=== PATIENT | female | born 1975 | race Two or more races ===

== ENCOUNTER 2024-01-14 13:14 | Outpatient (CLI) | payer OTHER ==
[2024-01-15] MEDS ORDERED: COZAAR25 MG PO (13:13)
[2024-01-15] MEDS ORDERED: MACRODANTIN100 M1 PO (14:32)
== END 2024-01-14 13:21 | disposition home or self-care (01) ==
LOC: MAMO-SONO 13:14
PROVIDERS: ATTEND Obstetrics & Gynecology
DX: R10.2 Pelvic and perineal pain (principal); N60.11 Diffuse cystic mastopathy of right breast; N60.12 Diffuse cystic mastopathy of left breast

== ENCOUNTER 2024-01-15 12:22 | Emergency (ER) | payer OTHER ==
[~2024-01-15] VITALS: Ht 170.2 cm; Wt 88.5 kg
[2024-01-15] MEDS ORDERED: COZAAR25 MG PO (13:13)
[2024-01-15] MEDS ORDERED: CEFTRIAXONE SODIUM 1,000 MG VIAL IM ONE (13:30)
[2024-01-15 13:31] LABS: HEMATOCRIT 41.1 % (36.0-45.00); HEMOGLOBIN 13.5 g/dL (12.0-15.00); MEAN CELL VOLUME 80.5 fL (80.00-100.00); MEAN CORPUSCULAR HEMOGLOBIN 26.5 pg (27.00-32.0); MEAN CORPUSCULAR HGB CONC 32.9 g/dl (32.0-36.0); PLATELET COUNT 289 K/uL (150-450); RED CELL DISTRIBUTION WIDTH 14.5 % (11.5-14.5)
[2024-01-15 13:52] LABS: ALBUMIN 3.5 gm/dL (3.4-5.0); BILIRUBIN TOTAL 0.41 mg/dL (0.3-1.2); CALCIUM 8.9 mg/dL (8.5-10.1); CREATININE SERUM 0.7 mg/dL (0.55-1.02); GFR 88.94; GLOBULINA 4.2 G/DL (2.4-3.5); POTASSIUM 4.05 mEq/L (3.5-5.1); TOTAL PROTEIN 7.7 gm/dL (6.4-8.2)
[2024-01-15 13:54] LABS: PH,URINE 5.5 (5.0-8.0); URINE APPEARANCE Cloudy; URINE BILIRRUBIN Small (NEGATIVE); URINE BLOOD Large; URINE COLOR Orange; URINE GLUCOSE Negative (NEGATIVE); URINE KETONE Negative (NEGATIVE); URINE LEUKOCYTE Small; URINE NITRATE Positive; URINE PROTEIN Trace (NEGATIVE)
[2024-01-15 13:58] LABS: URINE BACTERIA 6461.1 uL (0.0-1933); URINE EPITHELIAL CELLS 51.6 uL (0.0-38.8); URINE RBC 70.8 uL (0.0-20.8); URINE WBC 88.6 uL (0.0-23.2)
[2024-01-15 14:15] LABS: URINE CAST 0.14 uL (0.0-1.40)
[2024-01-15] MEDS ORDERED: MACRODANTIN100 M1 PO (14:32)
== END 2024-01-15 14:35 | disposition home or self-care (01) ==
LOC: ER 12:22
PROVIDERS: General Practice
DX: N39.0 Urinary tract infection, site not specified (principal); R30.0 Dysuria; I10 Essential (primary) hypertension; Z88.0 Allergy status to penicillin; Z88.1 Allergy status to other antibiotic agents

== ENCOUNTER → 2024-02-21 09:48 | Outpatient (CLI) | payer OTHER ==
[~2024-02-21 09:48] MED LIST: COZAAR25 MG PO; MACRODANTIN100 M1 PO
[2024-02-21 11:48] LABS: PH,URINE 6.5 (5.0-8.0); URINE APPEARANCE Clear; URINE BILIRRUBIN Negative (NEGATIVE); URINE BLOOD Small; URINE COLOR Yellow; URINE GLUCOSE Negative (NEGATIVE); URINE KETONE Negative (NEGATIVE); URINE LEUKOCYTE Negative; URINE NITRATE Negative; URINE PROTEIN Negative (NEGATIVE); URINE UROBILINOGEN 0.2 E.U./dl
[2024-02-21 11:49] LABS: URINE BACTERIA 512.8 uL (0.0-1933); URINE EPITHELIAL CELLS 13.9 uL (0.0-38.8); URINE RBC 23.2 uL (0.0-20.8); URINE WBC 6.7 uL (0.0-23.2)
[2024-02-21 12:06] LABS: URINE CAST 0.14 uL (0.0-1.40)
[2024-02-21 12:11] LABS: HEMATOCRIT 40.4 % (36.0-45.00); HEMOGLOBIN 13.3 g/dL (12.0-15.00); MEAN CELL VOLUME 80.1 fL (80.00-100.00); MEAN CORPUSCULAR HEMOGLOBIN 26.3 pg (27.00-32.0); MEAN CORPUSCULAR HGB CONC 32.8 g/dl (32.0-36.0); PLATELET COUNT 334 K/uL (150-450); RED BLOOD COUNT 5.05 M/uL (4.00-6.00); RED CELL DISTRIBUTION WIDTH 14.5 % (11.5-14.5)
[2024-02-21 12:47] LABS: ALBUMIN 3.6 gm/dL (3.4-5.0); BILIRUBIN TOTAL 0.44 mg/dL (0.3-1.2); CALCIUM 8.7 mg/dL (8.5-10.1); CHOL HDL RATIO 3.7 (0-5.0); CREATININE SERUM 0.59 mg/dL (0.55-1.02); GFR 108.33; GLOBULINA 3.4 G/DL (2.4-3.5); POTASSIUM 4.25 mEq/L (3.5-5.1); T4 FREE 0.92 NG/ML (0.76-1.46); TSH 1.1 uIU/mL (0.358-3.74)
== END | disposition home or self-care (01) ==
LOC: LAB 09:48
DX: I11.9 Hypertensive heart disease without heart failure (principal); E78.2 Mixed hyperlipidemia; R00.2 Palpitations; R73.01 Impaired fasting glucose; I50.32 Chronic diastolic (congestive) heart failure; Z12.11 Encounter for screening for malignant neoplasm of colon; D64.9 Anemia, unspecified; E03.8 Other specified hypothyroidism; N95.1 Menopausal and female climacteric states; C51.9 Malignant neoplasm of vulva, unspecified; A64 Unspecified sexually transmitted disease; N39.0 Urinary tract infection, site not specified; R79.89 Other specified abnormal findings of blood chemistry; E55.9 Vitamin D deficiency, unspecified; A60.9 Anogenital herpesviral infection, unspecified

== ENCOUNTER → 2024-05-08 08:00 | Outpatient (CLI) | payer OTHER ==
[2024-05-08 08:40] LABS: URINE APPEARANCE Clear; URINE BACTERIA 231.2 uL (0.0-1933); URINE BILIRRUBIN Negative (NEGATIVE); URINE BLOOD Small; URINE COLOR Yellow; URINE EPITHELIAL CELLS 8.8 uL (0.0-38.8); URINE GLUCOSE Negative (NEGATIVE); URINE KETONE Negative (NEGATIVE); URINE LEUKOCYTE Negative; URINE NITRATE Negative; URINE PROTEIN Negative (NEGATIVE); URINE RBC 21.3 uL (0.0-20.8); URINE UROBILINOGEN 0.2 E.U./dl
[2024-05-08 09:13] LABS: CALCIUM 9.3 mg/dL (8.5-10.1); CREATININE SERUM 0.7 mg/dL (0.55-1.02); GFR 88.94; POTASSIUM 4.29 mEq/L (3.5-5.1)
== END | disposition home or self-care (01) ==
LOC: LAB 08:00
DX: I10 Essential (primary) hypertension (principal); R73.01 Impaired fasting glucose

== ENCOUNTER 2024-07-07 20:05 | Emergency (ER) | payer OTHER ==
[~2024-07-07] VITALS: Ht 165.1 cm; Wt 86.2 kg
[2024-07-07] MEDS ORDERED: METFORMIN HCL500 M3 (20:16)
[2024-07-07] MEDS ORDERED: AMPICILLIN SODIUM 1,000 MG VIAL IM STA (21:12)
[2024-07-08] MEDS ORDERED: NORFLEX100MG PO (12:16)
== END 2024-07-07 22:02 | disposition home or self-care (01) ==
LOC: ER 20:08
DX: J03.80 Acute tonsillitis due to other specified organisms (principal); Z88.2 Allergy status to sulfonamides; Z88.1 Allergy status to other antibiotic agents

== ENCOUNTER 2024-07-08 07:26 | Emergency (ER) | payer OTHER ==
[~2024-07-08] VITALS: Ht 170.2 cm; Wt 88.5 kg
[~2024-07-08 07:26] MED LIST changes: +METFORMIN HCL500 M3
[2024-07-08] MEDS ORDERED: KETOROLAC TROMETHAMINE 60 MG VIAL IM ONE ×2 (08:45)
[2024-07-08] MEDS ORDERED: ORPHENADRINE CITRATE 30 MG/ML AMPUL ONE (08:45)
[2024-07-08] MEDS ORDERED: ORPHENADRINE CITRATE 30 MG/ML AMPUL IM ONE (08:45)
[2024-07-08] MEDS ORDERED: NORFLEX100MG PO (12:16)
== END 2024-07-08 12:31 | disposition home or self-care (01) ==
LOC: ER 08:05
DX: M54.10 Radiculopathy, site unspecified (principal); Z88.2 Allergy status to sulfonamides; E11.9 Type 2 diabetes mellitus without complications; Z79.84 Long term (current) use of oral hypoglycemic drugs; I10 Essential (primary) hypertension

== ENCOUNTER → 2024-11-06 08:34 | Outpatient (CLI) | payer OTHER ==
[~2024-11-06 08:34] MED LIST changes: +NORFLEX100MG PO
[2024-11-06 09:55] LABS: BASO % 0.3 % (0.1-1.2); EOS # 0.09 (0.04-0.54); EOS % 1.0 % (0.7-7.0); LYMPH # 2.92 (1.18-3.74); LYMPH % 32.7 % (19.3-53.1); MEAN PLATELET VOLUME 9.90 fl (9.4-12.4); MONO # 0.69 (0.24-0.82); MONO % 7.7 % (4.7-12.5); NEUT # 5.19 (1.56-6.13); NEUT % 58.2 % (34.0-71.1); RED CELL DISTRIBUTION WIDTH 13.8 % (11.6-14.4)
[2024-11-06 10:43] LABS: URINE APPEARANCE Clear; URINE BILIRRUBIN Negative (NEGATIVE); URINE BLOOD Moderate; URINE COLOR Yellow; URINE GLUCOSE Negative (NEGATIVE); URINE KETONE Negative (NEGATIVE); URINE LEUKOCYTE Negative; URINE NITRATE Negative; URINE PROTEIN Negative (NEGATIVE); URINE UROBILINOGEN 1.0 E.U./dl
[2024-11-06 10:44] LABS: URINE BACTERIA 643.0 uL (0.0-1933); URINE EPITHELIAL CELLS 16.1 uL (0.0-38.8); URINE RBC 65.8 uL (0.0-20.8); URINE WBC 12.6 uL (0.0-23.2)
[2024-11-06 10:44] LABS: ALT/SGPT 22.0 U/L (12-78); AST/SGOT 10.0 U/L (15-37); BILIRUBIN TOTAL 0.41 mg/dL (0.3-1.2); BUN CREA RATIO 33.0 (7.0-25.0); CHOL HDL RATIO 3.9 (0-5.0); CREATININE SERUM 0.58 mg/dL (0.55-1.02); GFR 110.49; GLOBULINA 3.3 G/DL (2.4-3.5); GLUCOSE FASTING 88.0 mg/dL (65-100); HDL 49.0 mg/dl (40-60); LDL 129.0 mg/dl (0-130); OSMOLALITY SERUM 287.0 MOSM/KG (275-295); T4 FREE 1.01 NG/ML (0.76-1.46); TSH 1.05 uIU/mL (0.358-3.74); VLDL 10.0 (0-39)
[2024-11-06 11:01] LABS: URINE CAST 0.43 uL (0.0-1.40)
== END | disposition home or self-care (01) ==
LOC: LAB 08:34
DX: I11.9 Hypertensive heart disease without heart failure (principal); R00.2 Palpitations; E78.2 Mixed hyperlipidemia; I50.32 Chronic diastolic (congestive) heart failure; E03.8 Other specified hypothyroidism; E11.9 Type 2 diabetes mellitus without complications; I10 Essential (primary) hypertension; G80.1 Spastic diplegic cerebral palsy